=== PATIENT | female | born 1995 | race Caucasian/White ===

== ENCOUNTER 2018-09-17 18:49 | Emergency (ER) | payer SELFPAY ==
[~2018-09-17] VITALS: Ht 170.1 cm; Wt 99.8 kg
[~2018-09-17 18:49] MED LIST: AMOXICILLIN500 MG PO; ANAPROX DS550 MG PO; ATARAX25 MG PO; PREDNICOT10 MG PO
[2018-09-17] MEDS ORDERED: ZYRTEC10 MG PO ×2 (19:05→19:08)
[2018-09-17] MEDS ORDERED: OMNICEF300 MG PO (19:08)
== END 2018-09-17 19:11 | disposition home or self-care (01) ==
LOC: ED 18:49
DX: H66.92 Otitis media, unspecified, left ear (principal); J02.9 Acute pharyngitis, unspecified

== ENCOUNTER 2018-11-30 11:14 | Emergency (ER) | payer SELFPAY ==
[~2018-11-30] VITALS: Ht 170.1 cm; Wt 104.3 kg
[~2018-11-30 11:14] MED LIST changes: +OMNICEF300 MG PO; +ZYRTEC10 MG PO
[2018-11-30 11:43] LABS: BASO % 0.3 % (0.0-1.0); EOS # 0.5 10*3/uL (0.0-0.4); EOS % 5.2 % (1.0-4.0); HEMATOCRIT 45.4 % (37.0-47.0); HEMOGLOBIN 15.1 g/dl (12.0-16.0); LYMPH # 1.1 10*3/uL (1.3-4.4); LYMPH % 12.3 % (27.0-41.0); MEAN CORPUSCULAR HGB 27.6 pg (27.0-31.0); MEAN CORPUSCULAR HGB CONC 33.3 g/dl (33.0-37.0); MEAN PLATELET VOLUME 11.3 fl (9.6-12.3); MONO # 0.4 10*3/uL (0.1-1.0); MONO % 4.7 % (3.0-9.0); NEUT % 77.3 % (47.0-73.0); PLATELET COUNT AUTOMATED 276 10*3/uL (130-400); RED BLOOD COUNT 5.47 10*6/uL (4.10-5.10)
[2018-11-30 12:26] LABS: ALBUMIN 3.1 gm/dl (3.1-4.5); ALKALINE PHOSPHATASE 90 U/L (45-117); BUN 11 mg/dl (7-24); CHLORIDE 110 mmol/L (98-107); CREATININE 0.69 mg/dL (0.55-1.02); POTASSIUM 3.5 mmol/L (3.5-5.1); SGOT/AST 28 IU/L (3-35); SGPT/ALT 50 U/L (12-78); SODIUM 140 mmol/L (136-145); TOTAL PROTEIN 6.8 gm/dL (6.4-8.2)
[2018-11-30 12:32] LABS: BILIRUBIN 2+ (NEGATIVE); BLOOD NEGATIVE (NEGATIVE); CLARITY CLOUDY (CLEAR); COLOR YELLOW (YELLOW); GLUCOSE NEGATIVE (NEGATIVE); KETONE NEGATIVE (NEGATIVE); LEUKO ESTERASE 2+ (NEGATIVE); NITRITE NEGATIVE (NEGATIVE)
[2018-11-30 12:42] LABS: EPITHELIAL CELLS 21-30; RBC 0-2 rbc/hpf (0-2); WBC 21-30 wbc/hpf (0-5)
[2018-11-30] MEDS ORDERED: ROBITUSSIN DM 101 OZ PO (13:44)
[2018-11-30] MEDS ORDERED: AUGMENTIN 875-875 MG PO (13:44)
[2018-11-30] MEDS ORDERED: PREDNISONE20 M1 PO (13:44)
== END 2018-11-30 13:50 | disposition home or self-care (01) ==
LOC: ED 11:14
PROVIDERS: Nurse Practitioner Family
DX: J01.90 Acute sinusitis, unspecified (principal)

== ENCOUNTER 2019-04-16 21:58 | Emergency (ER) | payer OTHER ==
[~2019-04-16] VITALS: Wt 79.4 kg
[~2019-04-16 21:58] MED LIST changes: +AUGMENTIN 875-875 MG PO; +PREDNISONE20 M1 PO; +ROBITUSSIN DM 101 OZ PO
[2019-04-17 00:28] LABS: BASO # 0.1 10*3/uL (0.0-0.1); BASO % 0.5 % (0.0-1.0); EOS # 0.4 10*3/uL (0.0-0.4); EOS % 4.3 % (1.0-4.0); HEMATOCRIT 42.7 % (37.0-47.0); HEMOGLOBIN 13.6 g/dl (12.0-16.0); LYMPH % 30.1 % (27.0-41.0); MEAN CELL VOLUME 87.5 fl (81.0-99.0); MEAN CORPUSCULAR HGB 27.9 pg (27.0-31.0); MEAN CORPUSCULAR HGB CONC 31.9 g/dl (33.0-37.0); MEAN PLATELET VOLUME 11.7 fl (9.6-12.3); MONO # 0.6 10*3/uL (0.1-1.0); MONO % 6.4 % (3.0-9.0); NEUT # 5.9 10*3/uL (2.3-7.9); NEUT % 58.4 % (47.0-73.0); PLATELET COUNT AUTOMATED 275 10*3/uL (130-400); RED BLOOD COUNT 4.88 10*6/uL (4.10-5.10); RED CELL DISTRI WIDTH 13.3 % (0-14.5); WHITE BLOOD COUNT 10.1 10*3/uL (4.8-10.8)
[2019-04-17 00:53] LABS: ALBUMIN 3.7 gm/dl (3.1-4.5); ALKALINE PHOSPHATASE 65 U/L (45-117); BUN 20 mg/dl (7-24); CHLORIDE 109 mmol/L (98-107); CREATININE 0.62 mg/dL (0.55-1.02); POTASSIUM 4.1 mmol/L (3.5-5.1); SGOT/AST 10 IU/L (3-35); SGPT/ALT 20 U/L (12-78); SODIUM 139 mmol/L (136-145); TOTAL PROTEIN 6.9 gm/dL (6.4-8.2)
[2019-04-17] MEDS ORDERED: AUGMENTIN 875875 MG PO (02:31)
== END 2019-04-17 02:35 | disposition home or self-care (01) ==
LOC: ED 21:58
PROVIDERS: Emergency Medicine
DX: J32.9 Chronic sinusitis, unspecified (principal); J03.90 Acute tonsillitis, unspecified; F17.200 Nicotine dependence, unspecified, uncomplicated; Z79.899 Other long term (current) drug therapy

== ENCOUNTER 2020-01-21 13:23 | Emergency (ER) | payer SELFPAY ==
[~2020-01-21] VITALS: Ht 170.1 cm; Wt 104.3 kg
[~2020-01-21 13:23] MED LIST changes: +AUGMENTIN 875875 MG PO
[2020-01-21] MEDS ORDERED: SEPTDS PO (14:05)
== END 2020-01-21 14:50 | disposition home or self-care (01) ==
LOC: ED 13:23
DX: S00.85XA Superficial foreign body of other part of head, initial encounter (principal); W22.8XXA Striking against or struck by other objects, initial encounter; Y93.89 Activity, other specified; Y92.89 Other specified places as the place of occurrence of the external cause; Y99.8 Other external cause status

== ENCOUNTER 2020-05-20 17:15 | Emergency (ER) | payer BC ==
[~2020-05-20] VITALS: Ht 170.1 cm; Wt 104.3 kg
[~2020-05-20 17:15] MED LIST changes: +SEPTDS PO
[2020-05-20 20:55] LABS: BASO # 0.1 10*3/uL (0.0-0.1); BASO % 0.5 % (0.0-1.0); EOS # 0.3 10*3/uL (0.0-0.4); HEMATOCRIT 43.2 % (37.0-47.0); LYMPH # 3.4 10*3/uL (1.3-4.4); LYMPH % 33.6 % (27.0-41.0); MEAN CELL VOLUME 85.4 fl (81.0-99.0); MEAN CORPUSCULAR HGB 27.9 pg (27.0-31.0); MEAN CORPUSCULAR HGB CONC 32.6 g/dl (33.0-37.0); MEAN PLATELET VOLUME 11.2 fl (9.6-12.3); MONO # 0.4 10*3/uL (0.1-1.0); MONO % 4.2 % (3.0-9.0); NEUT # 5.8 10*3/uL (2.3-7.9); NEUT % 58.5 % (47.0-73.0); PLATELET COUNT AUTOMATED 317 10*3/uL (130-400); RED BLOOD COUNT 5.06 10*6/uL (4.10-5.10); RED CELL DISTRI WIDTH 13.4 % (0-14.5)
[2020-05-20 21:09] LABS: ALBUMIN 3.8 gm/dl (3.1-4.5); ALKALINE PHOSPHATASE 79 U/L (45-117); BUN 7 mg/dl (7-24); CHLORIDE 109 mmol/L (98-107); CREATININE 0.63 mg/dL (0.55-1.02); POTASSIUM 3.8 mmol/L (3.5-5.1); SGOT/AST 8 IU/L (3-35); SGPT/ALT 19 U/L (12-78); SODIUM 140 mmol/L (136-145); TOTAL PROTEIN 7.5 gm/dL (6.4-8.2)
[2020-05-20 21:11] LABS: B-hCG (QUALITATIVE) NEGATIVE (NEGATIVE)
[2020-05-20 21:23] LABS: BILIRUBIN Negative (Negative); BLOOD Negative (Negative); CLARITY Clear (Clear); COLOR Yellow (Yellow); GLUCOSE Negative (Negative); KETONE Negative (Negative); LEUKO ESTERASE Negative (Negative); NITRITE Negative (Negative); PH 6.5 (4.5-8.0); UROBILINOGEN 0.2 E.U./dl (0.0-1.0)
[2020-05-20 21:31] LABS: BACTERIA TRACE; RBC 0-2 rbc/hpf (0-2); WBC 0-2 wbc/hpf (0-5)
== END 2020-05-21 00:09 | disposition home or self-care (01) ==
LOC: ED 17:15
PROVIDERS: Physician Assistant
DX: N83.201 Unspecified ovarian cyst, right side (principal); Z79.899 Other long term (current) drug therapy

== ENCOUNTER → 2021-03-17 | Outpatient (CLI) | payer BC | END | disposition home or self-care (01) | LOC: COVID19 15:05 | PROVIDERS: ATTEND Internal Medicine | DX: Z20.822 Contact with and (suspected) exposure to COVID-19 (principal) ==

== ENCOUNTER 2021-05-19 16:07 | Emergency (ER) | payer BC ==
[~2021-05-19] VITALS: Ht 170.1 cm; Wt 88.5 kg
== END 2021-05-19 19:27 | disposition home or self-care (01) ==
LOC: ED 16:07
DX: S06.0X0A Concussion without loss of consciousness, initial encounter (principal); F17.200 Nicotine dependence, unspecified, uncomplicated; W18.39XA Other fall on same level, initial encounter; Y93.89 Activity, other specified; Y92.89 Other specified places as the place of occurrence of the external cause; Y99.8 Other external cause status

== ENCOUNTER 2021-09-16 12:37 | Emergency (ER) | payer BC ==
[~2021-09-16] VITALS: Ht 170.1 cm; Wt 90.7 kg
[2021-09-16 13:26] LABS: BILIRUBIN Negative (Negative); BLOOD 3+ (Negative); CLARITY Clear (Clear); COLOR Yellow (Yellow); GLUCOSE Negative (Negative); KETONE Negative (Negative); LEUKO ESTERASE Negative (Negative); NITRITE Negative (Negative); PH 6.5 (4.5-8.0); SPECIFIC GRAVITY <= 1.005 (1.001-1.030); UROBILINOGEN 0.2 E.U./dl (0.0-1.0)
[2021-09-16] MEDS ORDERED: PREDNISONE50 MG PO (15:58)
[2021-09-16] MEDS ORDERED: NAPROSYN500 MG PO (15:58)
[2021-09-16] MEDS ORDERED: METHOCARBAMOL500 M1 PO (15:58)
== END 2021-09-16 15:59 | disposition home or self-care (01) ==
LOC: ED 12:37
PROVIDERS: Emergency Medicine
DX: M54.50 Low back pain, unspecified (principal)

== ENCOUNTER → 2021-09-18 | Outpatient (CLI) | payer BC ==
[~2021-09-18] MED LIST changes: +METHOCARBAMOL500 M1 PO; +NAPROSYN500 MG PO; +PREDNISONE50 MG PO
== END | disposition home or self-care (01) ==
LOC: RAD 13:57
PROVIDERS: ATTEND Nurse Practitioner Family
DX: R35.0 Frequency of micturition (principal); M54.50 Low back pain, unspecified; R10.9 Unspecified abdominal pain

== ENCOUNTER 2023-12-03 13:06 | Emergency (ER) | payer BC, MEDICAID ==
[~2023-12-03] VITALS: Ht 170.1 cm; Wt 97.5 kg
[2023-12-03] MEDS ORDERED: Amoxicillin/Clavulanate Pota 875 MG TAB PO ONE (14:10)
[2023-12-03] MEDS ORDERED: ACETAMINOPHEN 325 MG TAB PO ONE (14:10)
[2023-12-03 14:25] LABS: BASO % 0.3 % (0.0-1.0); EOS % 0.4 % (1.0-4.0); HEMATOCRIT 35.8 % (37.0-47.0); LYMPH # 0.7 10*3/uL (1.3-4.4); LYMPH % 7.4 % (27.0-41.0); MEAN CELL VOLUME 85.4 fl (81.0-99.0); MEAN CORPUSCULAR HGB CONC 31.6 g/dl (33.0-37.0); MEAN PLATELET VOLUME 10.6 fl (9.6-12.3); MONO # 0.4 10*3/uL (0.1-1.0); NEUT # 7.8 10*3/uL (2.3-7.9); NEUT % 87.6 % (47.0-73.0); PLATELET COUNT AUTOMATED 308 10*3/uL (130-400); RED BLOOD COUNT 4.19 10*6/uL (4.10-5.10); RED CELL DISTRI WIDTH 13.4 % (0-14.5)
[2023-12-03 14:47] LABS: BUN 8 mg/dl (9-23); CHLORIDE 109 mmol/L (98-107); POTASSIUM 3.3 mmol/L (3.4-5.1)
[2023-12-03] MEDS ORDERED: AMOX-CLAV 875-1 EACH PO (15:39)
== END 2023-12-03 15:54 | disposition home or self-care (01) ==
LOC: ED 13:06
PROVIDERS: Emergency Medicine
DX: N61.0 Mastitis without abscess (principal); R50.9 Fever, unspecified